=== PATIENT | male | born 1950 | race Caucasian/White ===

== ENCOUNTER 2017-08-08 11:44 | Emergency (ER) | payer MEDICARE, OTHER ==
[~2017-08-08] VITALS: Ht 182.9 cm; Wt 84.2 kg
[2017-08-08 11:46] VITALS: BP 198/104
[2017-08-08] MEDS ORDERED: ONDANSETRON ODT 4 MG ONE (12:13)
[2017-08-08] MEDS ORDERED: HYDROmorphone 1 MG/ML, 1ML ONE (12:13)
[2017-08-08] MEDS ORDERED: HYDROmorphone 1 MG/ML, 1ML IM ONE (12:30)
[2017-08-08] MEDS ORDERED: ONDANSETRON ODT 4 MG PO ONE (12:30)
== END 2017-08-08 12:43 | disposition home or self-care (01) ==
LOC: ED 12:39
DX: S16.1XXA Strain of muscle, fascia and tendon at neck level, initial encounter (principal); Z86.73 Personal history of transient ischemic attack (TIA), and cerebral infarction without residual deficits; F17.200 Nicotine dependence, unspecified, uncomplicated; X58.XXXA Exposure to other specified factors, initial encounter; Y93.89 Activity, other specified; Y92.89 Other specified places as the place of occurrence of the external cause; Y99.9 Unspecified external cause status
CPT/HCPCS: 96372; 99283; J1170; Q0162

== ENCOUNTER 2017-08-22 21:02 | Inpatient (IN) | payer MEDICARE ==
[~2017-08-22] VITALS: Ht 182.9 cm; Wt 86.3 kg
[2017-08-22] MEDS ORDERED: ACETAMINOPHEN 325 MG TABLET PO ONE (21:30)
[2017-08-22 21:39] LABS: HEMATOCRIT 43.3 % (39.2-51.8); HEMOGLOBIN 14.6 g/dL (13.7-18.0); WHITE BLOOD COUNT 10.5 x10^3/uL (3.4-10)
[2017-08-22] MEDS ORDERED: LORazepam 2 MG/ML, 1ML ONE (21:46)
[2017-08-22] MEDS ORDERED: POTASSIUM CHLORIDE 20 MEQ TAB.ER.PRT PO ONE (22:00)
[2017-08-22] MEDS ORDERED: ALTEPLASE IV ONE ×2 (22:30)
[2017-08-22] MEDS ORDERED: SILVER NITRATE STICK TP ONE (22:44)
[2017-08-22] MEDS ORDERED: ACETAMINOPHEN 325 MG TABLET ONE (22:59)
[2017-08-22] MEDS ORDERED: ONDANSETRON 2MG/ML, 2ML IVPush PRN (23:00)
[2017-08-22] MEDS ORDERED: LORazepam 2 MG/ML, 1ML IVPush PRN (23:00)
[2017-08-22] MEDS ORDERED: BISACODYL 10 MG SUPP PR PRN (23:00)
[2017-08-22] MEDS ORDERED: DOCUSATE 100 MG CAPSULE PO PRN (23:00)
[2017-08-22] MEDS ORDERED: POLYETHYLENE GLYCOL 17 GM PACKET PO PRN (23:00)
[2017-08-22] MEDS ORDERED: LISI1TAB7 PO (23:27)
[2017-08-22] MEDS ORDERED: LEVE250T28 PO (23:30)
[2017-08-22] MEDS ORDERED: CLON0.2T PO (23:30)
[2017-08-22] MEDS ORDERED: FENTANYL 12 MCG PATCH TD SCH (23:30)
[2017-08-22] MEDS ORDERED: MORP30TA PO (23:30)
[2017-08-22] MEDS ORDERED: OXYC10TA6 PO (23:30)
[2017-08-22] MEDS ORDERED: CLON2TAB16 PO (23:30)
[2017-08-23] VITALS (36 sets, daily range): BP systolic 89–170; BP diastolic 47–100
[2017-08-23] MEDS: morphine SULFATE 10 MG/ML, 1ML IVPush PRN ×2 (00:08→00:34)
[2017-08-23] MEDS ORDERED: LORazepam 2 MG/ML, 1ML IM PRN (00:30)
[2017-08-23] MEDS ORDERED: FENTANYL 25 MCG PATCH ONE (00:32)
[2017-08-23] MEDS: NICOTINE 14MG/24 HR PATCH.TD24 TD SCH (00:34)
[2017-08-23] MEDS ORDERED: morphine SULFATE 10 MG/ML, 1ML ONE (01:17)
[2017-08-23] MEDS ORDERED: FENTANYL 25 MCG PATCH TD SCH (01:30)
[2017-08-23] MEDS ORDERED: morphine SULFATE 10 MG/ML, 1ML IVPush PRN (02:00)
[2017-08-23] MEDS: HYDROmorphone 1 MG/ML, 1ML IV PRN ×5 (03:05→22:17)
[2017-08-23] MEDS: NS + 20MEQ KCL 1,000 ML IV SCH (03:14)
[2017-08-23] MEDS ORDERED: OXYcodone/APAP 5/325MG TABLET ONE (04:51)
[2017-08-23] MEDS: OXYcodone/APAP 5/325MG TABLET PO PRN ×3 (04:53→13:01)
[2017-08-23] MEDS ORDERED: PANTOPRAZOLE 40 MG IV IVPush SCH (07:30)
[2017-08-23] MEDS ORDERED: SENNA/DOCUSATE TABLET PO SCH (09:00)
[2017-08-23] MEDS ORDERED: LEVETIRACETAM 500 MG TABLET PO SCH (10:30)
[2017-08-23] MEDS ORDERED: LISINOPRIL 20 MG TABLET PO SCH (11:00)
[2017-08-23] MEDS: LEVETIRACETAM 1,000 MG in SODIUM CHLORIDE 0.9% 100 ML IV SCH ×2 (11:19→19:06)
[2017-08-23 12:04] LABS: BLOOD UREA NITROGEN 16 mg/dL (7-18)
[2017-08-23 12:09] LABS: ASPARTATE AMINO TRANSFERASE 24 U/L (15-37)
[2017-08-23] MEDS ORDERED: OMNIPAQUE 350 MG/ML, 100ML BOTTLE ONE (13:32)
[2017-08-23] MEDS ORDERED: MULTIVITAMIN 1 TABLET PO SCH (14:30)
[2017-08-23] MEDS ORDERED: FOLIC ACID 1 MG TABLET PO SCH (14:30)
[2017-08-23] MEDS ORDERED: THIAMINE 100MG TABLET PO SCH (15:00)
[2017-08-23] MEDS ORDERED: SODIUM CHLORIDE 0.9% 500 ML IV ONE (20:33)
[2017-08-23] MEDS ORDERED: ATORVASTATIN 40 MG TABLET PO SCH (21:00)
[2017-08-24 00:05] VITALS: BP 106/81
[2017-08-24 01:16] VITALS: BP 100/59
[2017-08-24] MEDS: NICOTINE 14MG/24 HR PATCH.TD24 TD SCH (02:01)
[2017-08-24] MEDS: NS + 20MEQ KCL 1,000 ML IV SCH (02:01)
[2017-08-24] MEDS: OXYcodone/APAP 5/325MG TABLET PO PRN ×2 (02:02→06:01)
[2017-08-24] MEDS: LEVETIRACETAM 1,000 MG in SODIUM CHLORIDE 0.9% 100 ML IV SCH (02:44)
[2017-08-24 03:56] VITALS: BP 117/60
[2017-08-24] MEDS: HYDROmorphone 1 MG/ML, 1ML IV PRN (05:45)
[2017-08-24] MEDS ORDERED: ASPIRIN 81 MG TABLET EC PO SCH (06:00)
[2017-08-24 06:13] LABS: DAU SCREEN DISCLAIMER
[2017-08-25] MEDS ORDERED: SENNA/DOCUSATE TABLET PO SCH (09:00)
[2017-08-25] MEDS ORDERED: FENTANYL 25 MCG PATCH TD SCH (23:30)
== END 2017-08-24 06:45 | disposition left against medical advice (07) | DRG 61 ==
LOC: ED 21:22 → SUATTDRO 22:56 → EDIP 23:01 → CCU 23:47 → CSU 08-23 08:29 → 4EST 08-24 01:09
PROVIDERS: ADMIT Family Medicine; ATTEND Family Medicine
DX: G45.9 Transient cerebral ischemic attack, unspecified (principal); I63.9 Cerebral infarction, unspecified; G81.94 Hemiplegia, unspecified affecting left nondominant side; G93.89 Other specified disorders of brain; G40.109 Localization-related (focal) (partial) symptomatic epilepsy and epileptic syndromes with simple partial seizures, not intractable, without status epilepticus; G43.109 Migraine with aura, not intractable, without status migrainosus; E78.5 Hyperlipidemia, unspecified; F10.229 Alcohol dependence with intoxication, unspecified; F17.200 Nicotine dependence, unspecified, uncomplicated; G51.0 Bell's palsy; G89.29 Other chronic pain; G93.9 Disorder of brain, unspecified; Y90.8 Blood alcohol level of 240 mg/100 ml or more; Z66 Do not resuscitate; I10 Essential (primary) hypertension; Z53.21 Procedure and treatment not carried out due to patient leaving prior to being seen by health care provider; Z98.1 Arthrodesis status; Z79.899 Other long term (current) drug therapy; Z86.73 Personal history of transient ischemic attack (TIA), and cerebral infarction without residual deficits
CPT/HCPCS: 36415; 70450; 70496; 70498; 70551; 80047; 80053; 80061; 80307; 85025; 85610; 85730; 87081; 93005; 93306; 99291; J1170; J1953; J2997; J3480; Q9967; 92523-GN; C9113; G0479; J2060; J2270

== ENCOUNTER 2017-09-05 16:30 | Emergency (ER) | payer MEDICARE, OTHER ==
[~2017-09-05] VITALS: Ht 182.9 cm; Wt 91.0 kg
[~2017-09-05 16:30] MED LIST: CLON0.2T PO; CLON2TAB16 PO; LEVE250T28 PO; LISI1TAB7 PO; MORP30TA PO; OXYC10TA6 PO
[2017-09-05] MEDS ORDERED: LORazepam 2 MG/ML, 1ML ONE (16:45)
[2017-09-05] MEDS ORDERED: LORazepam 2 MG/ML, 1ML IVPush ONE (17:00)
== END 2017-09-05 16:54 | disposition left against medical advice (07) ==
LOC: ED 16:48
DX: F43.0 Acute stress reaction (principal); Z76.5 Malingerer [conscious simulation]; F10.129 Alcohol abuse with intoxication, unspecified; Z86.73 Personal history of transient ischemic attack (TIA), and cerebral infarction without residual deficits
CPT/HCPCS: 93005; 99283

== ENCOUNTER 2018-02-04 16:25 | Emergency (ER) | payer MEDICARE ==
[~2018-02-04] VITALS: Ht 182.9 cm; Wt 82.0 kg
[2018-02-04 16:33] VITALS: BP 191/119
[2018-02-04] MEDS ORDERED: NALOXONE 0.4 MG/ML, 1ML ONE (16:49)
== END 2018-02-04 17:18 | disposition home or self-care (01) ==
LOC: ED 17:12
DX: F10.220 Alcohol dependence with intoxication, uncomplicated (principal); G40.909 Epilepsy, unspecified, not intractable, without status epilepticus; Z86.73 Personal history of transient ischemic attack (TIA), and cerebral infarction without residual deficits
CPT/HCPCS: 99281

== ENCOUNTER 2018-02-19 14:22 | Emergency (ER) | payer MEDICARE ==
[~2018-02-19] VITALS: Ht 185.4 cm; Wt 82.0 kg
[2018-02-19 14:25] VITALS: BP 136/55
== END 2018-02-19 14:43 | disposition left against medical advice (07) ==
LOC: ED 14:37
DX: F10.129 Alcohol abuse with intoxication, unspecified (principal); Z53.21 Procedure and treatment not carried out due to patient leaving prior to being seen by health care provider

== ENCOUNTER 2018-08-07 10:20 | Emergency (ER) | payer MEDICARE ==
[~2018-08-07] VITALS: Ht 182.9 cm; Wt 77.0 kg
[2018-08-07 11:02] VITALS: BP 170/89
== END 2018-08-07 12:15 | disposition home or self-care (01) ==
LOC: ED 11:45
DX: M79.642 Pain in left hand (principal); I10 Essential (primary) hypertension; Z86.73 Personal history of transient ischemic attack (TIA), and cerebral infarction without residual deficits; G40.909 Epilepsy, unspecified, not intractable, without status epilepticus; F41.1 Generalized anxiety disorder; F32.9 Major depressive disorder, single episode, unspecified
CPT/HCPCS: 99284

== ENCOUNTER 2020-08-19 20:11 | Emergency (ER) | payer BC, MEDICAID ==
[~2020-08-19] VITALS: Ht 185.4 cm; Wt 72.0 kg
[~2020-08-19 20:11] MED LIST changes: +LISI1TAB20 PO; -LISI1TAB7 PO
--- NOTE | 2020-08-19 20:23 | NUR ---
PT REGISTERED TO INCORRECT BIRTHDATE. PRECIOUS ELLISON RN, NOTIFIED. REGISTRATION TO PUT IN CORRECT REGISTRATION INFORMATION.
--- NOTE | 2020-08-19 20:43 | NUR ---
LATE ENTRY: PT BROUGHT IN BY EMS FROM HOME WHERE HE WAS REPORTED TO HAVE INCREASING LEFT SIDED WEAKNESS X 6 WEEKS. PT REPORTS HISTORY OF STROKE WITH LEFT SIDED DEFICITS, DM, METH ABUSE. PT ARRIVES TO [facility] ED WITH STABLE VS AND ASSESSMENT UPON ARRIVAL BY DR BAUMANN. CODE NEURO CANCELLED AT THIS TIME. VERBAL ORDER RECEIVED FROM DR BAUMANN FOR HEAD CT WITHOUT CONTRAST, AND ORDER PLACED BY THIS RN. PT BROUGHT BACK TO [facility] ROOM FROM CT AT THIS TIME. EKG PERFORMED AT BS. PT SLEEPY AND ASKED ABOUT ETOH AND SUBSTANCE USE. PT REPORTS METH USE 3 DAYS AGO. PT ATTACHED TO VS AND CARDIAC MONITORS. VSS AT THIS TIME. PT PLACED IN YELLOW FALL GOWN AND EDUCATED ON ER PROCESS AND POC. PT VERBALIZES UNDERSTANDING. LAB AT BS AT THIS TIME.
[2020-08-19 20:57] LABS: BASOPHILS % (AUTO) 1 % (0-1); EOSINOPHILS % (AUTO) 3 % (1-7); LYMPHOCYTES % (AUTO) 28 % (22-44); MEAN CORPUSCULAR HEMOGLOBIN 29.9 pg (27.5-34.5); MEAN CORPUSCULAR HGB CONC 32.9 g/dL (33.2-36.2); MEAN PLATELET VOLUME 8.1 fL (7.4-10.4); MONOCYTES % (AUTO) 6 % (2-9); NEUTROPHILS % (AUTO) 63 % (42-75); PLATELET COUNT 384 x10^3/uL (130-400); RED BLOOD COUNT 4.24 x10^6/uL (4.38-5.82); RED CELL DISTRIBUTION WIDTH 13.5 % (9.4-14.8)
[2020-08-19] MEDS ORDERED: SODIUM CHLORIDE FLUSH 10ML SYR IVF ONE (21:00)
[2020-08-19] MEDS ORDERED: NALOXONE 0.4 MG/ML, 1ML ONE (21:03)
[2020-08-19 21:08] LABS: ALBUMIN 3.1 g/dL (3.4-5.0); ANION GAP 8 mmol/L (5-15); CALCIUM 9.2 mg/dL (8.5-10.1); CHLORIDE 103 mmol/L (98-107); CREATININE 1.16 mg/dL (0.7-1.3); MD NO; SALICYLATE LEVEL 1.9 mg/dL (2.8-20.0)
--- NOTE | 2020-08-19 21:13 | NUR ---
PT MEDICATED PER MAR AT THIS TIME. PT VSS AND UPDATED IN EMR.
[2020-08-19] MEDS ORDERED: NALOXONE 0.4 MG/ML, 1ML IM ONE (21:30)
--- NOTE | 2020-08-19 22:08 | NUR ---
PT VSS AND UPDATED IN EMR. LAB CALLED TO SAY BLUE TOP WAS HEMOLYZED AND FOR THE NEED FOR A REDRAW. DR BAUMANN NOTIFIED. DR BAUMANN NOTIFIED ALSO OF PT STATING HE IS UNABLE TO VOID. ERP VERBALIZES UNDERSTANDING; NO NEW ORDERS OR INTERVENTIONS RECEIVED AT THIS TIME.
[2020-08-19 22:10] VITALS: BP 115/72
--- NOTE | 2020-08-19 22:20 | NUR ---
LAB AT BS FOR PT BLOOD REDRAW.
[2020-08-19 22:54] LABS: INTERNATIONAL NORMALIZED RATIO 0.98 (0.93-1.1); PROTHROMBIN TIME 10.1 Seconds (9.6-11.5)
--- NOTE | 2020-08-19 23:01 | NUR ---
PT D/C WITH D/C SUMMARY. PT VSS PRIOR TO D/C AND PT VERBALIZES DESIRE TO GO HOME AND "SLEEP". PT AMBULATES TO WHEELCHAIR WHERE HE WAS WHEELED TO REGISTRATION AND WHERE [facility]AXI WAS PHONED FOR PT. [facility]I VOUCHER PROVIDED FOR SAFE D/C HOME. PT DENIES ANY OTHER NEEDS PERTAINING TO THIS VISIT.
== END 2020-08-19 23:06 | disposition home or self-care (01) ==
LOC: EDBD 20:11 → MERGE 20:11 → ED 22:30
DX: R53.1 Weakness (principal); H53.9 Unspecified visual disturbance; R26.2 Difficulty in walking, not elsewhere classified; R94.31 Abnormal electrocardiogram [ECG] [EKG]; R06.89 Other abnormalities of breathing; I10 Essential (primary) hypertension; E11.9 Type 2 diabetes mellitus without complications; G40.909 Epilepsy, unspecified, not intractable, without status epilepticus; F17.200 Nicotine dependence, unspecified, uncomplicated; Z95.1 Presence of aortocoronary bypass graft; Z86.73 Personal history of transient ischemic attack (TIA), and cerebral infarction without residual deficits; Z90.89 Acquired absence of other organs
CPT/HCPCS: 36415; 70450; 71045; 80048; 80307; 82040; 85025; 85610; 85730; 93005; 99285